=== PATIENT | male | born 1955 | race Caucasian/White ===

== ENCOUNTER 2017-08-15 14:31 | Inpatient (IN) | payer MEDICARE, OTHER ==
[2017-08-15] MEDS ORDERED: NITROGLYCERIN SL TABS 0.4 MG TAB SUBLINGUAL PRN (15:01)
[2017-08-15] MEDS ORDERED: MORPHINE SULFATE 4 MG/ML SYRINGE IV PRN (15:01)
[2017-08-15] MEDS ORDERED: HEPARIN SODIUM,PORCINE 5,000 UNIT/ML 1 ML VIAL IV PRN (15:01)
[2017-08-15] MEDS ORDERED: PREGABALIN 100 MG CAP PO STA (15:06)
--- NOTE | 2017-08-15 15:09 | ED ---
General Adult HPI - General Chief complaint: Chest Pain Stated complaint: Chest pain Time Seen by Provider: 08/15/17 14:44 Source: EMS, RN notes reviewed, old records reviewed Mode of arrival: EMS Limitations: no limitations - History of Present Illness Initial comments: This is a 62-year-old male to the ER for evaluation. She presents today for evaluation regards to chest pain. Patient presented to [place] her discomfort for chest pain earlier today. Patient was transferred to Hospital for further evaluation and management. Patient has history of severe CAD. No shortness of breath no cough or congestion or recent travel history or sick contacts. Patient denies any trauma. - Related Data Allergies Allergy/AdvReac Type Severity Reaction Status Date / Time No Known Allergies Allergy Unverified 08/15/17 15:07 Review of Systems ROS Statement: Those systems with pertinent positive or pertinent negative responses have been documented in the HPI. ROS Other: All systems not noted in ROS Statement are negative. Past Medical History Past Medical History: Coronary Artery Disease (CAD), Chest Pain / Angina, COPD Additional Past Medical History / Comment(s): Neuropathy History of Any Multi-Drug Resistant Organisms: None Reported Additional Past Surgical History / Comment(s): Right below the knee amputation, left above the knee amputation Past Psychological History: No Psychological Hx Reported Smoking Status: Current every day smoker Past Alcohol Use History: None Reported Past Drug Use History: Marijuana General Exam Limitations: no limitations General appearance: alert, anxious Head exam: Present: atraumatic, normocephalic, normal inspection Eye exam: Present: normal appearance, PERRL, EOMI. Absent: scleral icterus, conjunctival injection, periorbital swelling ENT exam: Present: normal exam, mucous membranes moist Neck exam: Present: normal inspection. Absent: tenderness, meningismus, lymphadenopathy Respiratory exam: Present: normal lung sounds bilaterally. Absent: respiratory distress, wheezes, rales, rhonchi, stridor Cardiovascular Exam: Present: regular rate, normal rhythm, normal heart sounds. Absent: systolic murmur, diastolic murmur, rubs, gallop, clicks GI/Abdominal exam: Present: soft, normal bowel sounds. Absent: distended, tenderness, guarding, rebound, rigid Extremities exam: Present: normal inspection, full ROM, normal capillary refill. Absent: tenderness, pedal edema, joint swelling, calf tenderness Back exam: Present: normal inspection Neurological exam: Present: alert, oriented X3, CN II-XII intact Psychiatric exam: Present: normal affect, normal mood Skin exam: Present: warm, dry, intact, normal color. Absent: rash Course Vital Signs 08/15/17 14:35 Temperature 97.0 F L Pulse Rate 77 Respiratory 16 Rate Blood Pressure 98/60 O2 Sat by Pulse 95 Oximetry - Reevaluation(s) Reevaluation #1: 08/15/17 15:08 Outpatient lab tests and studies are reviewed, patient's complaining of chest pain and nerve pain Medical Decision Making - Medical Decision Making 62 male the ER for vaginal chest pain. Elevated troponin, no EKG changes. Patient will be admitted for anticoagulation, cardiology observation Critical Care Time Critical Care Time: Yes Total Critical Care Time: 31 Disposition Clinical Impression: Chest pain, NSTEMI (non-ST elevated myocardial infarction) Disposition: ADMITTED IP TO THIS HOSP Condition: Serious Referrals: Salome Reynoso MD [Primary Care Provider] - 1-2 days
[2017-08-15] MEDS ORDERED: IPRATROPIUM-ALBUTEROL 3 ML NEB INHALATION STA (15:10)
[2017-08-15] MEDS: HEPARIN SOD,PORK IN 0.45% NACL 25,000 UNIT in 0.45% NACL 1 500ML.BAG IV SCH (15:34)
[2017-08-15 16:24] LABS: Basophils # (A) 0.1 k/uL (0-0.2); Basophils % (A) 1 %; Eosinophils # (A) 0.2 k/uL (0-0.7); Eosinophils % (A) 2 %; HCT 54.1 % (39.0-53.0); HGB 18.2 gm/dL (13.0-17.5); Lymphocytes # (A) 3.1 k/uL (1.0-4.8); Lymphocytes % (A) 39 %; MCH 28.5 pg (25.0-35.0); MCHC 33.6 g/dL (31.0-37.0); MCV 84.8 fL (80.0-100.0); Monocytes # (A) 0.5 k/uL (0-1.0); Monocytes % (A) 6 %; Neutrophils % (A) 50 %; Platelet Count 191 k/uL (150-450); RBC 6.39 m/uL (4.30-5.90)
[2017-08-15 16:32] LABS: ALT 30 U/L (21-72); AST 21 U/L (17-59); Albumin 3.6 g/dL (3.5-5.0); Alkaline Phosphatase 112 U/L (38-126); Anion Gap 9 mmol/L; Blood Urea Nitrogen 14 mg/dL (9-20); Calcium 8.8 mg/dL (8.4-10.2); Carbon Dioxide 24 mmol/L (22-30); Chloride 105 mmol/L (98-107); Glucose 98 mg/dL (74-99); Potassium 4.2 mmol/L (3.5-5.1); Sodium 138 mmol/L (137-145); Total Bilirubin 0.8 mg/dL (0.2-1.3)
[2017-08-15 16:40] LABS: INR 1.1 (<1.2); Partial Thromboplastin Time 36.8 sec (22.0-30.0); Prothrombin Time 10.7 sec (9.0-12.0)
[2017-08-15 16:57] LABS: Creatine Kinase MB 2.3 ng/mL (0.0-2.4)
[2017-08-15 17:13] LABS: Troponin I 0.654 ng/mL (0.000-0.034)
[2017-08-15] MEDS ORDERED: NALOXONE 0.4 MG/ML 1 ML VIAL IV PRN (17:40)
[2017-08-15] MEDS ORDERED: CALCIUM CARBONATE 500 MG CHEWABLE PO PRN (17:40)
[2017-08-15] MEDS ORDERED: MAGNESIUM HYDROXIDE 2,400 MG/10 ML CUP PO PRN (17:40)
[2017-08-15] MEDS ORDERED: LACTULOSE 20 GM/30 ML CUP PO PRN (17:40)
[2017-08-15] MEDS ORDERED: ONDANSETRON 4 MG/2 ML VIAL IVP PRN (17:40)
[2017-08-15 18:17] VITALS: RESP 18
[2017-08-15] MEDS: Acetaminophen-Codeine 300-30mg TAB PO PRN (19:54)
[2017-08-15] MEDS: PREGABALIN 100 MG CAP PO SCH (19:54)
[2017-08-15] MEDS: METOPROLOL TARTRATE 25 MG TAB PO SCH (19:55)
[2017-08-15] MEDS: LORazepam 0.5 MG TAB PO PRN (19:55)
[2017-08-15] MEDS: AMITRIPTYLINE HCL 25 MG TAB PO SCH (19:55)
[2017-08-15] MEDS: IPRATROPIUM-ALBUTEROL 3 ML NEB INHALATION SCH (20:19)
[2017-08-15] MEDS ORDERED: MELATONIN 3 MG TABLET PO PRN (21:00)
[2017-08-15] MEDS: BUDESONIDE 1 MG/2 ML NEBU INHALATION SCH (22:18)
--- NOTE | 2017-08-15 22:39 | HP ---
HISTORY AND PHYSICAL DATE OF ADMISSION: 08/15/2017 PRESENTING COMPLAINT: Chest pain. HISTORY OF PRESENTING COMPLAINT: This is a 62-year-old patient followed by Dr. Salome Reynoso. Patient for about 3 weeks has been having chest pain on and off. Patient is a bilateral below-knee amputee. The patient states he gets this pressure across the chest which lasts anywhere from a few minutes to less than an hour. It does not necessarily radiate. Sometimes he is short of breath, nauseated. Doubtful dizziness. He had a more protracted severe episode and decided to go to [facility]; there his troponin was 0.19 and he was transferred here to [facility]. Second troponin here went up to 0.654. Patient is being admitted with a possible acute non-Q-wave myocardial infarction, and this could have occurred maybe starting in the last 48 hours. Patient is also short of breath and does wheeze. He smokes. REVIEW OF SYSTEMS: CONSTITUTIONAL: Tired. HEENT: None. RESPIRATORY: Wheezing, short of breath, cough. CARDIOVASCULAR: As above. GASTROINTESTINAL: None. GENITOURINARY: None. MUSCULOSKELETAL: Some pain in the stump. DERMATOLOGICAL: None. HEMATOLOGICAL: None. LYMPHATICS: None. PSYCHIATRY: Anxious. NEUROLOGICAL: None. PAST MEDICAL HISTORY: Neuropathy. PAST SURGICAL HISTORY: 1. Right below-knee amputation. 2. Left above-knee amputation. SOCIAL HISTORY: Lives by himself. Has smoked for several years. Denies alcohol. Some marijuana. FAMILY HISTORY: Reviewed; noncontributory to presentation. HOME MEDICATIONS: 1. Lyrica 200 mg 3 times a day. 2. Prilosec 20 mg with breakfast. 3. Flonase 1 spray each nostril daily. 4. Elavil 25 mg p.o. b.i.d. ALLERGIES: NONE. PHYSICAL EXAMINATION: VITAL SIGNS ON PRESENTATION: Temperature 97, pulse 77, respiration 16, blood pressure 98/60, pulse ox 95% on 2 L. Last blood pressure was 120/71. GENERAL APPEARANCE: Well built; BMI 50. Sitting up, somewhat disheveled. EYES: Pupils equal. Conjunctivae normal. HEENT: External appearance of nose and ears normal. Oral cavity normal. NECK: JVD not raised. Mass not palpable. RESPIRATORY: Effort increased. LUNGS: Diminished breath sounds. Prolonged expiration and wheezing. CARDIOVASCULAR: First and second sounds normal. No edema. ABDOMEN: Soft, nontender. Liver and spleen not palpable. LYMPHATIC: No lymph node palpable in neck or axillae. PSYCHIATRY: Alert and oriented x3. Mood and affect anxious-appearing. INVESTIGATIONS: White count 8, hemoglobin 18.2, potassium 4.2. BUN and creatinine are normal. Troponin 0.654. Patient's troponin at [facility] was 0.19. EKG shows poor R-wave progression in the anterior leads and some flipping of the T- waves in the lateral leads. ASSESSMENT: 1. Possible acute non-Q-wave myocardial infarction. 2. Chronic obstructive pulmonary disease in a current smoker. 3. Chronic nicotine dependence. Patient is a cigarette smoker. 4. Peripheral arterial disease with right below-knee and left above-knee amputation. 5. Morbid obesity with body mass index of 50.2. 6. Peripheral arterial disease. 7. IV heparin monitoring. PLAN: Patient is currently on aspirin, beta delmar, Lipitor, IV heparin. Patient is also put on DuoNeb. We will also add inhaled steroids. Cardiology was consulted. Admitted to the telemetry floor. Care was discussed with the patient. Cardiology was consulted. MMODL / IJN: [id number] /
[2017-08-15] MEDS ORDERED: HEPARIN SODIUM 1,000 UN/ML (10ML VL) MISCELLANE ONE (23:05)
[2017-08-15] MEDS: NICOTINE 21MG/24HR PATCH TRANSDERM SCH (23:06)
[2017-08-15 23:10] LABS: Creatine Kinase MB 2.1 ng/mL (0.0-2.4)
[2017-08-15 23:12] LABS: Troponin I 0.571 ng/mL (0.000-0.034)
[2017-08-16] MEDS: IPRATROPIUM-ALBUTEROL 3 ML NEB INHALATION SCH ×6 (00:48→21:01)
[2017-08-16 05:42] LABS: Mean Platelet Volume 7.2; Platelet Count 172 k/uL (150-450)
[2017-08-16 05:54] LABS: Cholesterol 224 mg/dL (<200); HDL Cholesterol 26 mg/dL (40-60); LDL Cholesterol,Calculated 146 mg/dL (0-99); Triglycerides 260 mg/dL (<150)
[2017-08-16 06:31] LABS: Creatine Kinase MB 3.5 ng/mL (0.0-2.4)
[2017-08-16 06:37] LABS: Troponin I 0.575 ng/mL (0.000-0.034)
[2017-08-16] MEDS: BUDESONIDE 1 MG/2 ML NEBU INHALATION SCH ×2 (07:30→21:00)
--- NOTE | 2017-08-16 07:41 | XR ---
EXAMINATION TYPE: XR chest 2V DATE OF EXAM: 08/16/2017 COMPARISON: NONE HISTORY: Shortness of breath TECHNIQUE: Frontal and lateral views of the chest are obtained. FINDINGS: Scattered senescent parenchymal changes noted. Hyperinflation compatible with COPD. No evidence for infiltrate. Suspect linear atelectasis left lateral lung base. Heart size is stable. Mediastinal structures are stable and grossly unremarkable. No evidence for hilar prominence. Degenerative changes dorsal spine. IMPRESSION: 1. COPD. 2. Linear atelectasis left lateral lung base.
--- NOTE | 2017-08-16 08:08 | P.CRDCN ---
History of Present Illness Consult date: 08/16/17 Requesting physician: Grover Mora Consult reason: non-Q-wave CO Chief complaint: nonQ wave CO History of present illness: This is a 62-year-old gentleman with history of nicotine dependence, patient is also had stenting of his lower extremities, he denies hypertension, no diabetes, no hyperlipidemia, he does have a right below the knee amputation and a left [id number] amputation. He presented initially to [facility] and was transferred here. Patient states he's been having discomfort in his chest for the past one to 2 weeks, he did call his doctor last Saturday and was instructed to take the ambulance to the emergency room but because of finances he did not do this. He continued to have chest discomfort with associated shortness of breath on a daily basis with or without exertion. Ultimately he presented to [facility], patient was found to have a mildly abnormal troponin there and was transferred here for further evaluation. EKG performed [facility] showed a normal sinus rhythm with ST-T wave changes noted in the anterior lateral leads. His subsequent EKG performed here showed worsening changes in those leads. Blood pressure 136/68, heart rate in the 70s, temperature 97.5, he is 95% on 3 L of oxygen. White blood cell count 8.0, hemoglobin 18.2, platelet count 172. Sodium 138, potassium 4.2 , BUN 14, creatinine 0.8. Troponins 0.6, 0.5, 0.5. Cholesterol 224, LDL 146, HDL 26, triglycerides are 260. At the time of my examination this morning, he is currently chest pain-free. Past Medical History Past Medical History: Coronary Artery Disease (CAD), Chest Pain / Angina, COPD Additional Past Medical History / Comment(s): Neuropathy History of Any Multi-Drug Resistant Organisms: None Reported Additional Past Surgical History / Comment(s): Right below the knee amputation, left above the knee amputation Past Psychological History: No Psychological Hx Reported Smoking Status: Current every day smoker Past Alcohol Use History: None Reported Past Drug Use History: Marijuana Medications and Allergies Home Medications Medication Instructions Recorded Confirmed Type Amitriptyline HCl [Elavil] 25 mg PO BID 08/15/17 08/15/17 History Fluticasone Nasal [place] [Flonase 1 spr EA NOSTRIL DAILY 08/15/17 08/15/17 History Nasal [place]] Omeprazole [PriLOSEC] 20 mg PO AC-BRKFST 08/15/17 08/15/17 History Pregabalin [Lyrica] 200 mg PO TID 08/15/17 08/15/17 History Allergies Allergy/AdvReac Type Severity Reaction Status Date / Time No Known Allergies Allergy Verified 08/15/17 15:09 Physical Exam Vitals: Vital Signs Temp Pulse Pulse Resp BP BP Pulse Ox 08/16/17 07:45 74 08/16/17 07:33 70 90 L 08/16/17 03:03 97.5 F L 68 18 137/69 95 08/16/17 00:00 98.1 F 67 16 108/78 95 08/15/17 20:28 78 08/15/17 20:20 78 08/15/17 20:00 98 F 94 18 127/65 94 L 08/15/17 18:35 82 18 93 L 08/15/17 16:24 72 08/15/17 16:18 70 08/15/17 16:13 98.1 F 84 18 120/71 86 L 08/15/17 15:39 77 16 113/75 94 L 08/15/17 14:35 97.0 F L 77 16 98/60 95 Intake and Output 08/15/17 08/16/17 08/16/17 22:59 06:59 14:59 Intake Total 553.865 Balance 553.865 Intake: Intake, IV Titration 313.865 Amount Heparin Sod,Pork in 0.45% 313.865 NaCl 25,000 unit In 0.45 % NaCl 1 500ml.bag @ 12 UNITS/KG/HR 19.59 mls/hr IV .Q24H [facility] Rx#: [id number] Oral 240 Other: Voiding Method Urinal Urinal Weight 81.647 kg 46 kg PHYSICAL EXAMINATION: HEENT: Head is atraumatic, normocephalic. Pupils equal, round. Neck is supple. There is no elevated jugular venous pressure. HEART EXAMINATION: Heart S1, S2 normal. No murmur or gallop heard. CHEST EXAMINATION: On's reveal decreased air exchange with some fine expiratory wheezes throughout. ABDOMEN: Soft, obese, nontender. Bowel sounds are heard. No organomegaly noted. EXTREMITIES: Right [id number] amputation, left [id number] amputation NEUROLOGIC patient is awake, alert and oriented -3. . Results 08/16/17 05:26 08/15/17 16:14 Cardiac Enzymes 08/15/17 08/15/17 08/15/17 Range/Units 16:14 16:14 22:07 AST 21 (17-59) U/L CK-MB (CK-2) 2.3 2.1 (0.0-2.4) ng/mL Troponin I 0.654 H* 0.571 H* (0.000-0.034) ng/mL 08/16/17 Range/Units 05:26 AST (17-59) U/L CK-MB (CK-2) 3.5 H* (0.0-2.4) ng/mL Troponin I 0.575 H* (0.000-0.034) ng/mL Coagulation 08/15/17 08/15/17 08/16/17 Range/Units 16:14 22:07 05:26 PT 10.7 (9.0-12.0) sec APTT 36.8 H 32.8 H 29.6 (22.0-30.0) sec Lipids 08/16/17 Range/Units 05:26 Triglycerides 260 H (<150) mg/dL Cholesterol 224 H (<200) mg/dL HDL Cholesterol 26 L (40-60) mg/dL CBC 08/15/17 08/16/17 Range/Units 16:14 05:26 WBC 8.0 (3.8-10.6) k/uL RBC 6.39 H (4.30-5.90) m/uL Hgb 18.2 H (13.0-17.5) gm/dL Hct 54.1 H (39.0-53.0) % Plt Count 191 172 (150-450) k/uL Comprehensive Metabolic Panel 08/15/17 Range/Units 16:14 Sodium 138 (137-145) mmol/L Potassium 4.2 (3.5-5.1) mmol/L Chloride 105 (98-107) mmol/L Carbon Dioxide 24 (22-30) mmol/L BUN 14 (9-20) mg/dL Creatinine 0.82 (0.66-1.25) mg/dL Glucose 98 (74-99) mg/dL Calcium 8.8 (8.4-10.2) mg/dL AST 21 (17-59) U/L ALT 30 (21-72) U/L Alkaline Phosphatase 112 (38-126) U/L Total Protein 7.0 (6.3-8.2) g/dL Albumin 3.6 (3.5-5.0) g/dL Current Medications Generic Name Dose Route Start Last Admin Trade Name Freq PRN Reason Stop Dose Admin Acetaminophen/Codeine Phosphate 1 each 08/15/17 17:40 08/15/17 19:54 Tylenol #3 PO 1 each Q4HR PRN Administration Moderate Pain Albuterol/Ipratropium 3 ml 08/15/17 20:00 08/16/17 07:30 Duoneb 0.5 Mg-3 Mg/3 Ml Soln INHALATION 3 ml RT-Q4H [facility]TE Administration Amitriptyline HCl 25 mg 08/15/17 21:00 08/15/17 19:55 Elavil PO 25 mg BID YVETTE Administration Aspirin 325 mg 08/16/17 09:00 Aspirin PO DAILY YVETTE Atorvastatin Calcium 80 mg 08/16/17 09:00 Lipitor PO DAILY Y[facility]TE Budesonide 1 mg 08/15/17 21:45 08/16/17 07:30 Pulmicort INHALATION 1 mg RT-BID YVETTE Administration Calcium Carbonate/Glycine 1,000 mg 08/15/17 17:40 Tums PO Q4HR PRN Dyspepsia Heparin Sodium (Porcine) 0 unit 08/15/17 15:01 08/15/17 23:35 Heparin IV 4,000 unit Q6HR PRN Administration Low PTT Protocol Heparin Sodium/Sodium Chloride 500 mls @ 19.59 mls/hr 08/15/17 15:15 05:58 25,000 unit/ Sodium Chloride IV 18 units/kg/hr .Q24H [facility] 29.39 mls/hr Protocol Titration 12 UNITS/KG/HR Lactulose 20 gm 08/15/17 17:40 Cephulac PO DAILY PRN Constipation Lorazepam 0.5 mg 08/15/17 17:40 08/15/17 19:55 Ativan PO 0.5 mg Q6HR PRN Administration Anxiety Magnesium Hydroxide 2,400 mg 08/15/17 17:40 Milk Of Magnesia PO DAILY PRN Constipation Melatonin 3 mg 08/15/17 21:00 08/15/17 19:59 Melatonin PO 3 mg HS PRN Administration Insomnia Metoprolol Tartrate 25 mg 08/15/17 21:00 08/15/17 19:55 Lopressor PO 25 mg BID Y[facility]TE Administration Morphine Sulfate 4 mg 08/15/17 15:01 08/15/17 15:20 Morphine Sulfate (Inj) IV 4 mg Q5M PRN Administration Chest Pain Naloxone HCl 0.2 mg 08/15/17 17:40 Narcan IV Q2M PRN Opioid Reversal Nicotine 1 patch 08/15/17 22:00 08/15/17 23:06 Habitrol 21mg/24hr Patch TRANSDERM Not Given DAILY [facility] Nitroglycerin 0.4 mg 08/15/17 15:01 Nitrostat SUBLINGUAL Q5M PRN Chest Pain Ondansetron HCl 4 mg 08/15/17 17:40 Zofran IVP Q8HR PRN Nausea And Vomiting Pantoprazole Sodium 40 mg 08/16/17 07:30 Protonix PO AC-BRKFST YEVTTE Pregabalin 200 mg 08/15/17 22:00 08/15/17 19:54 Lyrica PO 200 mg TID YVETTE Administration Intake and Output 08/15/17 08/16/17 08/16/17 22:59 06:59 14:59 Intake Total 553.865 Balance 553.865 Intake: Intake, IV Titration 313.865 Amount Heparin Sod,Pork in 0.45% 313.865 NaCl 25,000 unit In 0.45 % NaCl 1 500ml.bag @ 12 UNITS/KG/HR 19.59 mls/hr IV .Q24H [facility] Rx#: [id number] Oral 240 Other: Voiding Method Urinal Urinal Weight 81.647 kg 46 kg 08/16/17 05:26 08/15/17 16:14 EKG Interpretations (text) EKG shows normal sinus rhythm with ST T wave changes in the anterior lateral leads. Assessment and Plan Plan: Assessment and plan #1 non-Q-wave myocardial infarction #2 nicotine dependence, patient's smokes 2 packs of cigarettes per day #3 peripheral vascular disease with prior peripheral stenting, patient has a right below the knee amputation on the left above the knee amputation #4 hyperlipidemia, untreated Plan We will obtain a stat echocardiogram with Doppler study. Patient has been initiated on Lipitor 80, he is also on aspirin, IV heparin, patient also has been advised that he'll need to undergo cardiac catheterization, the risks and benefits were explained to the patient in detail and he is willing to proceed. Further recommendations will be based on these findings and the patient's clinical course. DNP note has been reviewed, I agree with a documented findings and plan of care. Patient was seen and examined.
[2017-08-16] MEDS: PANTOPRAZOLE 40 MG TABLET PO SCH (08:16)
[2017-08-16] MEDS: LORazepam 0.5 MG TAB PO PRN (08:16)
[2017-08-16] MEDS: ATORVASTATIN 80 MG TAB PO SCH (08:16)
[2017-08-16] MEDS: PREGABALIN 100 MG CAP PO SCH ×3 (08:16→21:11)
[2017-08-16] MEDS: METOPROLOL TARTRATE 25 MG TAB PO SCH ×3 (08:16→23:02)
[2017-08-16] MEDS: NICOTINE 21MG/24HR PATCH TRANSDERM SCH (08:17)
[2017-08-16] MEDS: AMITRIPTYLINE HCL 25 MG TAB PO SCH ×2 (08:17→21:11)
[2017-08-16] MEDS ORDERED: ALPRAZolam 0.5 MG TAB PO PRN (09:06)
[2017-08-16] MEDS ORDERED: ATORVASTATIN 80 MG TAB PO STA (09:06)
[2017-08-16] MEDS ORDERED: ASPIRIN 325 MG TAB PO STA (09:06)
[2017-08-16] MEDS ORDERED: ALPRAZolam 0.25 MG TAB PO PRN (09:06)
[2017-08-16] MEDS ORDERED: SODIUM CHLORIDE 0.9% 1,000 ML in EMPTY BAG 1 BAG IV ONE (09:06)
[2017-08-16] MEDS ORDERED: NITROGLYCERIN SL TABS 0.4 MG TAB SUBLINGUAL PRN ×2 (09:06→11:14)
[2017-08-16] MEDS: ASPIRIN 325 MG TAB PO SCH (09:18)
[2017-08-16] MEDS ORDERED: VERAPAMIL 2.5 MG/ML 2 ML AMP ONE ×2 (10:19→10:43)
[2017-08-16] MEDS ORDERED: MIDAZOLAM 2 MG/2 ML VIAL IV ONE (10:22)
[2017-08-16] MEDS ORDERED: MIDAZOLAM 2 MG/2 ML VIAL ONE (10:22)
[2017-08-16] MEDS ORDERED: HEPARIN SODIUM 1,000 UN/ML (10ML VL) ONE (10:22)
[2017-08-16] MEDS ORDERED: IV FLUID CONTINUATION 900 ML IV ONE (10:25)
[2017-08-16] MEDS ORDERED: LIDOCAINE 2% INJ 20 MG/ML SQ ONE (10:25)
[2017-08-16] MEDS ORDERED: VERAPAMIL SYRINGE (5 MG/10 ML) INTRAARTER ONE ×2 (10:27→11:10)
[2017-08-16] MEDS: HEPARIN SODIUM 1,000 UN/ML (10ML VL) IV ONE ×2 (10:28→10:46)
[2017-08-16] MEDS ORDERED: fentaNYL (PF) 50 MCG/ML 2 ML AMP ONE (10:43)
[2017-08-16] MEDS: fentaNYL (PF) 50 MCG/ML 2 ML AMP IV ONE ×2 (10:45→10:52)
[2017-08-16] MEDS ORDERED: HEPARIN SODIUM 1,000 UN/ML (10ML VL) IV ONE (10:47)
[2017-08-16] MEDS ORDERED: niCARdipine 25 MG/10 ML VIAL ONE (10:56)
[2017-08-16] MEDS ORDERED: NITROGLYCERIN 1000MCG/10ML SYRINGE INTRACORON ONE (10:59)
[2017-08-16] MEDS ORDERED: CLOPIDOGREL 75 MG TAB ONE (11:09)
[2017-08-16] MEDS ORDERED: MAG HYDROX/AL HYDROX/SIMETH 30 ML CUP PO PRN (11:14)
[2017-08-16] MEDS ORDERED: RX INFO: IV CONTRAST WAS GIVEN 1 EACH MISC MISCELLANE PRN (11:14)
[2017-08-16] MEDS ORDERED: ATROPINE SULFATE 0.1 MG/ML 10ML SYRINGE IV PRN (11:14)
[2017-08-16] MEDS ORDERED: ZOLPIDEM 5 MG TAB PO PRN (11:14)
[2017-08-16] MEDS ORDERED: SODIUM CHLORIDE 0.9% 1,000 ML IV SCH (11:15)
[2017-08-16] MEDS ORDERED: IOHEXOL 350 MG/ML 125ML BOTTLE INJ ONE (11:15)
[2017-08-16] MEDS ORDERED: CLOPIDOGREL 75 MG TAB PO ONE (11:16)
--- NOTE | 2017-08-16 11:17 | P.CRDCN ---
History of Present Illness History of present illness: Patient interviewed and examined this morning. Pain-free. For the last several days he's been experiencing chest discomfort all across the front with bilateral arm discomfort and was asked to comment by his primary care physician almost a week back. Yesterday he was transferred from [facility] for chest pain abnormal cardiac enzymes and an abnormal ECG ECGs from [facility] were reviewed and show anterior ST-T abnormalities consistent with anterior wall injury Patient noncompliant with medications Bilateral amputee Peripheral vascular disease Suggest Antiplatelet therapy, statins, beta blockers and proceed with coronary angiography today 2. Echo and Doppler study Past Medical History Past Medical History: Coronary Artery Disease (CAD), Chest Pain / Angina, COPD Additional Past Medical History / Comment(s): Neuropathy History of Any Multi-Drug Resistant Organisms: None Reported Additional Past Surgical History / Comment(s): Right below the knee amputation, left above the knee amputation Past Psychological History: No Psychological Hx Reported Smoking Status: Current every day smoker Past Alcohol Use History: None Reported Past Drug Use History: Marijuana Medications and Allergies Home Medications Medication Instructions Recorded Confirmed Type Amitriptyline HCl [Elavil] 25 mg PO BID 08/15/17 08/15/17 History Fluticasone Nasal [place] [Flonase 1 spr EA NOSTRIL DAILY 08/15/17 08/15/17 History Nasal [place]] Omeprazole [PriLOSEC] 20 mg PO AC-BRKFST 08/15/17 08/15/17 History Pregabalin [Lyrica] 200 mg PO TID 08/15/17 08/15/17 History Allergies Allergy/AdvReac Type Severity Reaction Status Date / Time No Known Allergies Allergy Verified 08/15/17 15:09 Physical Exam Vitals: Vital Signs Temp Pulse Pulse Resp BP BP Pulse Ox 08/16/17 09:07 97.5 F L 76 18 91/58 92 L 08/16/17 08:42 97.6 F 76 18 91/58 86 L 08/16/17 08:05 18 92 L 08/16/17 08:00 76 18 08/16/17 07:45 74 08/16/17 07:33 70 90 L 08/16/17 03:03 97.5 F L 68 18 137/69 95 08/16/17 00:00 98.1 F 67 16 108/78 95 03/15/18 20:28 78 08/15/17 20:20 78 08/15/17 20:00 98 F 94 18 127/65 94 L 08/15/17 18:35 82 18 93 L 08/15/17 16:24 72 08/15/17 16:18 70 08/15/17 16:13 98.1 F 84 18 120/71 86 L 08/15/17 15:39 77 16 113/75 94 L 08/15/17 14:35 97.0 F L 77 16 98/60 95 Intake and Output 08/15/17 08/16/17 08/16/17 22:59 06:59 14:59 Intake Total 553.865 300 Balance 553.865 300 Intake: IV 300 Intake, IV Titration 313.865 Amount Heparin Sod,Pork in 0.45% 313.865 NaCl 25,000 unit In 0.45 % NaCl 1 500ml.bag @ 12 UNITS/KG/HR 19.59 mls/hr IV .Q24H [facility] Rx#: [id number] Oral 240 Other: Voiding Method Urinal Urinal Weight 81.647 kg 46 kg Results 08/16/17 05:26 08/15/17 16:14 Cardiac Enzymes 08/15/17 08/15/17 08/15/17 Range/Units 16:14 16:14 22:07 AST 21 (17-59) U/L CK-MB (CK-2) 2.3 2.1 (0.0-2.4) ng/mL Troponin I 0.654 H* 0.571 H* (0.000-0.034) ng/mL 08/16/17 Range/Units 05:26 AST (17-59) U/L CK-MB (CK-2) 3.5 H* (0.0-2.4) ng/mL Troponin I 0.575 H* (0.000-0.034) ng/mL Coagulation 08/15/17 08/15/17 08/16/17 Range/Units 16:14 22:07 05:26 PT 10.7 (9.0-12.0) sec APTT 36.8 H 32.8 H 29.6 (22.0-30.0) sec Lipids 08/16/17 Range/Units 05:26 Triglycerides 260 H (<150) mg/dL Cholesterol 224 H (<200) mg/dL HDL Cholesterol 26 L (40-60) mg/dL CBC 08/15/17 08/16/17 Range/Units 16:14 05:26 WBC 8.0 (3.8-10.6) k/uL RBC 6.39 H (4.30-5.90) m/uL Hgb 18.2 H (13.0-17.5) gm/dL Hct 54.1 H (39.0-53.0) % Plt Count 191 172 (150-450) k/uL Comprehensive Metabolic Panel 08/15/17 Range/Units 16:14 Sodium 138 (137-145) mmol/L Potassium 4.2 (3.5-5.1) mmol/L Chloride 105 (98-107) mmol/L Carbon Dioxide 24 (22-30) mmol/L BUN 14 (9-20) mg/dL Creatinine 0.82 (0.66-1.25) mg/dL Glucose 98 (74-99) mg/dL Calcium 8.8 (8.4-10.2) mg/dL AST 21 (17-59) U/L ALT 30 (21-72) U/L Alkaline Phosphatase 112 (38-126) U/L Total Protein 7.0 (6.3-8.2) g/dL Albumin 3.6 (3.5-5.0) g/dL Current Medications Generic Name Dose Route Start Last Admin Trade Name Freq PRN Reason Stop Dose Admin Acetaminophen/Codeine Phosphate 1 each 08/15/17 17:40 08/15/17 19:54 Tylenol #3 PO 1 each Q4HR PRN Administration Moderate Pain Albuterol/Ipratropium 3 ml 08/15/17 20:00 08/16/17 07:30 Duoneb 0.5 Mg-3 Mg/3 Ml Soln INHALATION 3 ml RT-Q4H Y[facility]TE Administration Alprazolam 0.25 mg 08/16/17 09:06 Xanax PO Q6HR PRN Mild Anxiety Alprazolam 0.5 mg 08/16/17 09:06 Xanax PO Q6HR PRN Moderate Anxiety Amitriptyline HCl 25 mg 08/15/17 21:00 08/16/17 08:17 Elavil PO 25 mg BID YVETTE Administration Aspirin 325 mg 08/16/17 09:00 08/16/17 09:18 Aspirin PO 325 mg DAILY [facility] Administration Atorvastatin Calcium 80 mg 08/16/17 09:00 08/16/17 08:16 Lipitor PO 80 mg DAILY [facility] Administration Budesonide 1 mg 08/15/17 21:45 08/16/17 07:30 Pulmicort INHALATION 1 mg RT-BID Y[facility]ETTE Administration Calcium Carbonate/Glycine 1,000 mg 08/15/17 17:40 Tums PO Q4HR PRN Dyspepsia Heparin Sodium (Porcine) 0 unit 08/15/17 15:01 08/15/17 23:35 Heparin IV 4,000 unit Q6HR PRN Administration Low PTT Protocol Heparin Sodium/Sodium Chloride 500 mls @ 19.59 mls/hr 08/15/17 15:15 05:58 25,000 unit/ Sodium Chloride IV 18 units/kg/hr .Q24H [facility] 29.39 mls/hr Protocol Titration 12 UNITS/KG/HR Lactulose 20 gm 08/15/17 17:40 Cephulac PO DAILY PRN Constipation Lorazepam 0.5 mg 08/15/17 17:40 08/15/17 19:55 Ativan PO 0.5 mg Q6HR PRN Administration Anxiety Magnesium Hydroxide 2,400 mg 08/15/17 17:40 Milk Of Magnesia PO DAILY PRN Constipation Melatonin 3 mg 08/15/17 21:00 08/15/17 19:59 Melatonin PO 3 mg HS PRN Administration Insomnia Metoprolol Tartrate 25 mg 08/15/17 21:00 08/16/17 08:41 Lopressor PO Not Given BID [facility] Morphine Sulfate 4 mg 08/15/17 15:01 08/15/17 15:20 Morphine Sulfate (Inj) IV 4 mg Q5M PRN Administration Chest Pain Naloxone HCl 0.2 mg 08/15/17 17:40 Narcan IV Q2M PRN Opioid Reversal Nicotine 1 patch 08/15/17 22:00 08/16/17 08:17 Habitrol 21mg/24hr Patch TRANSDERM 1 patch DAILY [facility] Administration Nitroglycerin 0.4 mg 08/15/17 15:01 Nitrostat SUBLINGUAL Q5M PRN Chest Pain Nitroglycerin 0.4 mg 08/16/17 09:06 Nitrostat SUBLINGUAL Q5M PRN Chest Pain Ondansetron HCl 4 mg 08/15/17 17:40 Zofran IVP Q8HR PRN Nausea And Vomiting Pantoprazole Sodium 40 mg 08/16/17 07:30 08/16/17 08:16 Protonix PO 40 mg AC-BRKFST [facility]TE Administration Pregabalin 200 mg 08/15/17 22:00 08/16/17 08:16 Lyrica PO 200 mg TID [facility]TE Administration Intake and Output 08/15/17 08/16/17 08/16/17 22:59 06:59 14:59 Intake Total 553.865 300 Balance 553.865 300 Intake: IV 300 Intake, IV Titration 313.865 Amount Heparin Sod,Pork in 0.45% 313.865 NaCl 25,000 unit In 0.45 % NaCl 1 500ml.bag @ 12 UNITS/KG/HR 19.59 mls/hr IV .Q24H [facility] Rx#: [id number] Oral 240 Other: Voiding Method Urinal Urinal Weight 81.647 kg 46 kg 08/16/17 05:26 08/15/17 16:14
[2017-08-16] MEDS ORDERED: MORPHINE ORAL SOLN 10 MG/5 ML CUP PO PRN (14:01)
[2017-08-16 14:15] VITALS: BMI 28.5
[2017-08-16] MEDS: HEPARIN SOD,PORK IN 0.45% NACL 25,000 UNIT in 0.45% NACL 1 500ML.BAG IV SCH (16:55)
--- NOTE | 2017-08-16 18:22 | PN ---
PROGRESS NOTE DATE OF SERVICE: 08/16/2017 PRESENTING COMPLAINT: Chest pain. INTERVAL HISTORY: This is a patient who presented with acute non-Q-wave myocardial infarction, was taken to the cardiac catheterization lab today and had angioplasty and stenting done to the LAD. I do not have the formal results with me. Patient is lying in bed, comfortable. No chest pain. Breathing is a bit better. REVIEW OF SYSTEMS: Done for constitutional, cardiovascular, GI, pulmonary; relevant findings as above. CURRENT MEDICATIONS: Reviewed. They include: 1. Aspirin. 2. Lipitor. 3. Plavix. 4. IV heparin. 5. Lopressor, which was actually held this morning because of low blood pressure. PHYSICAL EXAMINATION: Temperature 96.7, pulse 70, respiration 18, blood pressure 100/62, pulse ox 93% on 3 L. GENERAL APPEARANCE: Lying in bed, more comfortable. EYES: Pupils equal. Conjunctivae normal. HEENT: External appearance of nose and ears normal. Oral cavity normal. NECK: JVD not raised. Mass not palpable. RESPIRATORY: Effort normal. LUNGS: Diminished breath sounds. CARDIOVASCULAR: First and second sounds normal. No edema. ABDOMEN: Soft, nontender. Liver and spleen not palpable. PSYCHIATRY: Alert and oriented x3. Mood and affect normal. EXTREMITIES: Right below-knee amputation and left above-knee amputation. INVESTIGATIONS: Troponin 0.6, 0.5, 0.5. LDL is 146. ASSESSMENT: 1. Acute non-Q-wave myocardial infarction. 2. Cardiac catheterization with angioplasty and stenting possibly to left anterior descending coronary artery; I do not have the formal results. 3. Chronic obstructive pulmonary disease in a current smoker. 4. Chronic nicotine dependence. Patient is a cigarette smoker. 5. Peripheral arterial disease with right below-knee and left above-knee amputation. 6. Morbid obesity with body mass index of 50.2. 7. Peripheral arterial disease. 8. IV heparin monitoring. PLAN: Continue current medication and treatment plan. Care was discussed with the patient. Follow with Cardiology. MMODL / IJN: [id number] /
[2017-08-16] MEDS: Acetaminophen-Codeine 300-30mg TAB PO PRN (21:10)
[2017-08-16] MEDS ORDERED: IPRATROPIUM-ALBUTEROL 3 ML NEB INHALATION PRN (21:39)
[2017-08-17 06:09] LABS: Mean Platelet Volume 7.3; Platelet Count 139 k/uL (150-450)
[2017-08-17] MEDS: Acetaminophen-Codeine 300-30mg TAB PO PRN (06:18)
[2017-08-17] MEDS: PANTOPRAZOLE 40 MG TABLET PO SCH (06:19)
[2017-08-17] MEDS: PREGABALIN 100 MG CAP PO SCH (06:23)
[2017-08-17] MEDS: BUDESONIDE 1 MG/2 ML NEBU INHALATION SCH (08:54)
[2017-08-17] MEDS: IPRATROPIUM-ALBUTEROL 3 ML NEB INHALATION SCH ×2 (08:54→12:19)
[2017-08-17] MEDS ORDERED: ASPIRIN 325 MG TAB PO SCH (09:00)
[2017-08-17] MEDS ORDERED: CLOPIDOGREL 75 MG TAB PO SCH (09:00)
--- NOTE | 2017-08-17 09:49 | ECHOF ---
Referral Reason:assess lvf MEASUREMENTS -------- HEIGHT: 132.1 cm WEIGHT: 45.8 kg BP: 137/69 IVSd: 1.2 cm (0.6 - 1.1) LVIDd: 4.8 cm (3.9 - 5.3) LVPWd: 1.4 cm (0.6 - 1.1) IVSs: 1.4 cm LVIDs: 4.0 cm LVPWs: 1.5 cm Ao Diam: 3.5 cm (2.0 - 3.7) AV Cusp: 2.3 cm (1.5 - 2.6) LA Diam: 3.1 cm (2.7 - 3.8) MV EXCURSION: 11.106 mm (> 18.000) MV EF SLOPE: 53 mm/s (70 - 150) EPSS: 0.9 cm MV E Esau: 0.60 m/s MV DecT: 239 ms MV A Esau: 0.45 m/s MV E/A Ratio: 1.34 RAP: 5.00 mmHg RVSP: 7.35 mmHg FINDINGS -------- Sinus rhythm. This was a technically good study. The left ventricular size is normal. Left ventricular wall thickness is normal. Overall left vent ricular systolic function is moderate-severely impaired with, an EF between 30 - 35 %. Mid anterior LV wall motion is akinetic. Mid lateral LV wall motion is akinetic. Mid anteroseptal LV wall m otion is akinetic. Apical anterior LV wall motion is akinetic. Apical lateral LV wall motion is akinetic. Apical septum LV wall motion is akinetic. The right ventricle is normal in size and function. The left atrium is normal in size. The right atrium is normal in size. The aortic valve is trileaflet, and appears structurally normal. No aortic stenosis or regurgitation. The mitral valve is normal. Mild mitral regurgitation is present. Trace tricuspid regurgitation present. There is no evidence of pulmonary hypertension. The right ventricular systolic pressure, as measured by Doppler, is 7.35mmHg. Pulmonic valve appears structurally normal. There is no pulmonic regurgitation present. The aortic root, ascending aorta and aortic arch are normal. There is no pericardial effusion. CONCLUSIONS -------- 1. Sinus rhythm. 2. This was a technically good study. 3. The left ventricular size is normal. 4. Left ventricular wall thickness is normal. 5. Overall left ventricular systolic function is moderate-severely impaired with, an EF between 30 - 35 %. 6. Mid anterior LV wall motion is akinetic. 7. Mid lateral LV wall motion is akinetic. 8. Mid anteroseptal LV wall motion is akinetic. 9. Apical anterior LV wall motion is akinetic. 10. Apical lateral LV wall motion is akinetic. 11. Apical septum LV wall motion is akinetic. 12. The left atrium is normal in size. 13. The aortic valve is trileaflet, and appears structurally normal. No aortic stenosis or regurgitat ion. 14. Mild mitral regurgitation is present. 15. Trace tricuspid regurgitation present. 16. There is no evidence of pulmonary hypertension. 17. Pulmonic valve appears structurally normal. 18. There is no pulmonic regurgitation present. 19. The aortic root, ascending aorta and aortic arch are normal. 20. There is no pericardial effusion. [employer] PROFESSOR: Fabiana Loaiza RDCS
[2017-08-17] MEDS: ASPIRIN 325 MG TAB PO SCH (10:22)
[2017-08-17] MEDS: NICOTINE 21MG/24HR PATCH TRANSDERM SCH (10:23)
[2017-08-17] MEDS: METOPROLOL TARTRATE 25 MG TAB PO SCH ×2 (10:23→10:24)
[2017-08-17] MEDS: ATORVASTATIN 80 MG TAB PO SCH (10:23)
[2017-08-17] MEDS: AMITRIPTYLINE HCL 25 MG TAB PO SCH (10:23)
--- NOTE | 2017-08-17 11:22 | P.PN ---
Subjective Progress Note Date: 08/17/17 Principal diagnosis: Non-Q-wave [place] This is a 62-year-old gentleman with history of nicotine dependence, patient is also had stenting of his lower extremities, he denies hypertension, no diabetes, no hyperlipidemia, he does have a right below the knee amputation and a left xaysn-cpy-qcvg amputation. He presented initially to [facility] and was transferred here. Patient states he's been having discomfort in his chest for the past one to 2 weeks, he did call his doctor last Saturday and was instructed to take the ambulance to the emergency room but because of finances he did not do this. He continued to have chest discomfort with associated shortness of breath on a daily basis with or without exertion. Ultimately he presented to [facility], patient was found to have a mildly abnormal troponin there and was transferred here for further evaluation. EKG performed [facility] showed a normal sinus rhythm with ST-T wave changes noted in the anterior lateral leads. His subsequent EKG performed here showed worsening changes in those leads. Blood pressure 136/68, heart rate in the 70s, temperature 97.5, he is 95% on 3 L of oxygen. White blood cell count 8.0, hemoglobin 18.2, platelet count 172. Sodium 138, potassium 4.2 , BUN 14, creatinine 0.8. Troponins 0.6, 0.5, 0.5. Cholesterol 224, LDL 146, HDL 26, triglycerides are 260. At the time of my examination this morning, he is currently chest pain-free. 08/17/2017 Patient was taken to the cardiac catheterization lab yesterday where he underwent angioplasty and stenting of the LAD. EKG from this morning shows sinus rhythm with no changes from post-PCI. He is hemodynamically stable. From cardiology's perspective, he may be able to be discharged home today, we will make him a follow-up appointment to see Dr. Carreon in the office post discharge. He has been provided with necessary medications. Objective - Vital Signs Vital signs: Vital Signs Temp 98.7 F 08/17/17 04:00 Pulse 92 08/17/17 09:12 Resp 18 08/17/17 04:00 BP 101/54 08/17/17 04:00 Pulse Ox 93 L 08/17/17 04:00 Intake & Output 08/16/17 08/17/17 08/17/17 18:59 06:59 18:59 Intake Total 1840 Output Total 200 Balance 1840 -200 Weight 46 kg 80 kg Intake: IV 300 Intake, IV Titration 1000 Amount Sodium Chloride 0.9% 1, 1000 000 ml @ 100 mls/hr IV . Q10H COUNTS INCLUDE 234 BEDS AT THE [facility] Rx#:[id number] Oral 540 Output: Urine 200 Other: Voiding Method Urinal # Voids 4 - Exam PHYSICAL EXAMINATION: HEENT: Head is atraumatic, normocephalic. Pupils equal, round. Neck is supple. There is no elevated jugular venous pressure. HEART EXAMINATION: Heart S1, S2 normal. No murmur or gallop heard. CHEST EXAMINATION: On's reveal decreased air exchange with some fine expiratory wheezes throughout. ABDOMEN: Soft, obese, nontender. Bowel sounds are heard. No organomegaly noted. Right radial site clean and dry, good distal pulse. EXTREMITIES: Right hyrzp-rrk-pouy amputation, left eiakx-hmb-upqr amputation NEUROLOGIC patient is awake, alert and oriented -3. - Labs CBC & Chem 7: 08/17/17 05:54 08/17/17 05:54 Labs: Abnormal Lab Results - Last 24 Hours (Table) 08/17/17 Range/Units 05:54 Plt Count 139 L (150-450) k/uL Assessment and Plan Plan: Assessment and plan #1 non-Q-wave myocardial infarction, status post angioplasty and stenting of the LAD #2 nicotine dependence, patient's smokes 2 packs of cigarettes per day #3 peripheral vascular disease with prior peripheral stenting, patient has a right below the knee amputation on the left above the knee amputation #4 hyperlipidemia, untreated Plan Echocardiogram with Doppler study was performed which revealed an ejection fraction of 30-35%. Patient will be discharged home today to follow-up with Dr. Carreon in the office in one week. Patient will be discharged home on aspirin 325 mg daily, Lipitor 80 mg daily, Plavix 75 mg daily, metoprolol 25 mg one tablet by mouth twice a day, nicotine patch, sublingual nitro as needed for chest pain. Patient is not currently on an RAJ inhibitor because of hypotension , this will be reevaluated in the office as an outpatient. DNP note has been reviewed, I agree with a documented findings and plan of care. Patient was seen and examined.
--- NOTE | 2017-08-17 11:48 | P.DS ---
Providers Date of admission: 08/15/17 15:05 Attending physician: Grover Mora Consults: 08/15/17 15:05 Consult Physician Urgent Consulting Provider: Ana Romo Consult Reason/Comments: nstemi Do you want consulting provider notified?: Yes 08/16/17 11:16 Consult Physician Routine Consulting Provider: [facility] Consult Reason/Comments: Post Interventional patient Do you want consulting provider notified?: Already Contacted Primary care physician: Salome Reynoso Hospital Course: 62-year-old and was admitted for chest pain found to have non-ST elevation microinfarction underwent cardiac catheterization and stenting of left anterior descending. Patient denied any chest pain at this point of time extensive recording cessation counseling was provided. PHYSICAL EXAMINATION: GENERAL: The patient is alert and oriented x3, not in any acute distress. Well developed, well nourished. HEENT: Pupils are round and equally reacting to light. EOMI. No scleral icterus. No conjunctival pallor. Normocephalic, atraumatic. No pharyngeal erythema. No thyromegaly. CARDIOVASCULAR: S1 and S2 present. No murmurs, rubs, or gallops. PULMONARY: Chest is clear to auscultation, no wheezing or crackles. ABDOMEN: Soft, nontender, nondistended, normoactive bowel sounds. No palpable organomegaly. MUSCULOSKELETAL: No joint swelling or deformity. EXTREMITIES: Patient is wheelchair dependent NEUROLOGICAL: Gross neurological examination did not reveal any focal deficits. SKIN: No rashes. Please refer to Dr. jeffery dictation for other chronic medical problems. Patient Condition at Discharge: Serious Plan - Discharge Summary Discharge Rx Participant: No New Discharge Prescriptions: New Aspirin 325 mg PO DAILY #30 tab Atorvastatin [Lipitor] 80 mg PO DAILY #30 tab Clopidogrel [Plavix] 75 mg PO DAILY #30 tab Metoprolol Tartrate [Lopressor] 25 mg PO BID #60 tab Nicotine 21Mg/24Hr Patch [Habitrol] 1 patch TRANSDERM DAILY #30 patch Nitroglycerin Sl Tabs [Nitrostat] 0.4 mg SUBLINGUAL Q5M PRN #25 tab PRN Reason: Chest Pain No Action Pregabalin [Lyrica] 200 mg PO TID Omeprazole [PriLOSEC] 20 mg PO AC-BRKFST Fluticasone Nasal Benedict [Flonase Nasal Benedict] 1 spr EA NOSTRIL DAILY Amitriptyline HCl [Elavil] 25 mg PO BID Discharge Medication List Amitriptyline HCl [Elavil] 25 mg PO BID 08/15/17 [History] Fluticasone Nasal Benedict [Flonase Nasal Benedict] 1 spr EA NOSTRIL DAILY 08/15/17 [ History] Omeprazole [PriLOSEC] 20 mg PO AC-BRKFST 08/15/17 [History] Pregabalin [Lyrica] 200 mg PO TID 08/15/17 [History] Aspirin 325 mg PO DAILY #30 tab 08/17/17 [Rx] Atorvastatin [Lipitor] 80 mg PO DAILY #30 tab 08/17/17 [Rx] Clopidogrel [Plavix] 75 mg PO DAILY #30 tab 08/17/17 [Rx] Metoprolol Tartrate [Lopressor] 25 mg PO BID #60 tab 08/17/17 [Rx] Nicotine 21Mg/24Hr Patch [Habitrol] 1 patch TRANSDERM DAILY #30 patch 08/17/17 [ Rx] Nitroglycerin Sl Tabs [Nitrostat] 0.4 mg SUBLINGUAL Q5M PRN #25 tab 08/17/17 [Rx ] Follow up Appointment(s)/Referral(s): Joe Carreon MD [STAFF PHYSICIAN] - 1 Week Salome Reynoso MD [Primary Care Provider] - 1-2 days [facility] Visiting Nurse, [NON-STAFF] - Discharge Disposition: HOME WITH HOME HEALTH SERVICES
[2017-08-17 12:09] VITALS: BP 99/60; TEMP 97.8
[2017-08-17 12:32] VITALS: PULSE 91
--- NOTE | 2017-08-21 10:15 | CC ---
CARDIAC CATHETERIZATION REPORT DATE OF SERVICE: 08/16/2017 PERFORMING PHYSICIAN: Fabian Matthews MD, Court Crier. PROCEDURE PERFORMED: 1. Selective right and left coronary angiogram. 2. Left heart catheterization. 3. Successful stenting of the proximal LAD using 3.0 x 20 mm Promus Premier drug- eluting stent with good angiographic results. INDICATION: This is a pleasant 62-year-old gentleman with peripheral arterial disease and bilateral bzoiu-aww-sihu amputation as well as hypertension and dyslipidemia who presented to the hospital with chest discomfort and was ruled in for acute coronary syndrome. He was seen and evaluated by Dr. Carreon who recommended proceeding with a heart catheterization. APPROACH: Right radial artery. COMPLICATION: None. LEVEL OF SEDATION: Moderate with sedation length of 48 minutes. PROCEDURE DESCRIPTION: After obtaining an informed consent, the patient was brought to the Cardiac Acetylene Operator. The right radial artery was cannulated using micropuncture technique, the micropuncture wire passed easily, then I placed a 6-Armenian sheath 11 cm in the right radial artery. After that I gave the patient 2 mg of verapamil IA and 10,000 units of heparin IV. After that, I did selective right and left coronary angiogram using JR4 and JL3.5 catheters. Left heart catheterization was performed using the JR4, which flipped into the LV then I did pullback across the aortic valve. After reviewing the angiogram, we decided to intervene on the LAD. Please see a separate paragraph for that. SELECTIVE CORONARY ANGIOGRAM: 1. The right coronary artery is a large caliber vessel and it is dominant. RCA has mild disease in the midportion. Distally bifurcates into PDA and PLV branches, both are angiographically normal. 2. The left main is a large caliber vessel. It is angiographically normal. It bifurcates into left circumflex, ramus intermedius, and left anterior descending artery. 3. The left circumflex is a large caliber vessel and it is a nondominant vessel. The left circumflex has 2 lesions in the midportion about 60%. 4. The ramus intermedius is a moderate caliber vessel and seems to be angiographically normal. 5. The LAD, the proximal LAD has a lesion, appeared to be in the range of 95% to 99% with a thrombus. This mid LAD by the bifurcation of a large diagonal is angiographically normal and the LAD distally is angiographically normal. HEMODYNAMICS: The left ventricular end-diastolic pressure was 12 mmHg and no gradient was identified across the aortic valve. PCI of the LAD anticoagulation was initiated using heparin with continuous ACT monitoring throughout the procedure. After that, I did engage the left main using JL3.5 guide. A whisper wire was used to wire the LAD. Subsequently, I did aspiration thrombectomy from the LAD and I was able to extract multiple pieces of white clot. Then I did balloon angioplasty using 2.5 mm balloon before I deployed 3.0 x 20 mm Promus Premier drug-eluting stent where the stent was positioned under fluoroscopy guidance and deployed under 16 atmospheres for 20 seconds with the following angiogram showing good angiographic results in each dissection. The procedure was completed without any complication with a NISHI-3 flow. CONCLUSION: 1. Acute coronary artery syndrome. 2. Plaque rupture and thrombus formation in the proximal left anterior descending artery with a lesion appears to be in the range of 95% to 99%. .. 3. Intermediate to severe disease involving the left circumflex. 4. Mild nonobstructive disease involving the right coronary artery. 5. Successful stenting of the left anterior descending artery as described above. POSTPROCEDURE MANAGEMENT: 1. Dual anti-platelet therapy. 2. Risk factors modifications. 3. Follow up with the patient. MMODL / IJN: [id number] /
== END 2017-08-17 14:06 | disposition home health service (06) | DRG 247 ==
LOC: EC 14:31 → 6SEL 15:05
PROVIDERS: ADMIT Hospitalist; ATTEND Hospitalist
PROC: B2111ZZ Fluoroscopy of Multiple Coronary Arteries using Low Osmolar Contrast (ICD-10-PCS; principal; 2017-08-16 09:38)
PROC: 4A023N7 Measurement of Cardiac Sampling and Pressure, Left Heart, Percutaneous Approach (ICD-10-PCS; principal; 2017-08-16 09:38)
PROC: 027034Z Dilation of Coronary Artery, One Artery with Drug-eluting Intraluminal Device, Percutaneous Approach (ICD-10-PCS; principal; 2017-08-16 09:38)
PROC: 02C03ZZ Extirpation of Matter from Coronary Artery, One Artery, Percutaneous Approach (ICD-10-PCS; principal; 2017-08-16 09:38)
DX: I21.4 Non-ST elevation (NSTEMI) myocardial infarction (principal); E66.01 Morbid (severe) obesity due to excess calories; Z89.612 Acquired absence of left leg above knee; I73.9 Peripheral vascular disease, unspecified; E78.5 Hyperlipidemia, unspecified; F17.210 Nicotine dependence, cigarettes, uncomplicated; Z89.511 Acquired absence of right leg below knee; Z91.14 Patient's other noncompliance with medication regimen; J44.9 Chronic obstructive pulmonary disease, unspecified; Z79.82 Long term (current) use of aspirin; Z79.899 Other long term (current) drug therapy; Z79.51 Long term (current) use of inhaled steroids; I25.110 Atherosclerotic heart disease of native coronary artery with unstable angina pectoris; I10 Essential (primary) hypertension
CPT/HCPCS: 71046; 80053; 80061; 82550; 82553; 82565; 83735; 84484; 85025; 85049; 85379; 85610; 85730; 93005; 93306; 93458; 94640; 94760; 96365; 96366; 96375; 99291

== ENCOUNTER → 2022-12-12 | Outpatient (CLI) | payer MEDICARE ==
[2022-12-12 13:10] LABS: African American GFR (CKD) >90 (>60 ml/min/1.73 sqM); Blood Urea Nitrogen 13 mg/dL (9-20); Non-African American GFR(CKD) 89 (>60 ml/min/1.73 sqM)
--- NOTE | 2022-12-13 07:47 | CT ---
EXAMINATION TYPE: CT angio abd aorta w/Runoff DATE OF EXAM: 12/12/2022 COMPARISON: None HISTORY: B/L AMPUTEE. RT LEG PAIN. CT DLP: 1289.40 mGycm Automated exposure control for dose reduction was used. Contrast: None Technique: CT of the abdomen pelvis and lower extremities is performed at 5 mm thick sections. 3-D re constructed images performed on a separate computer repair engineer are presented. FINDINGS: CT abdomen: Liver appear unremarkable. Adrenal glands are normal. Gallbladder is normal. Pancreas is unremarkable. Vascular calcifications within the aorta. Inferior vena cava is normal. Loops of bowel without oral contrast. Urinary bladder is normal. There is a 0.8 cm solid density at the superior grace e left kidney. A 1.8 cm cystic lesion may be on the lateral right kidney. Nonobstructing 1.3 cm calc ification within the posterior mid left kidney. Aorta and runoff: Celiac axis and superior mesenteric artery origins appear normal. Bilateral renal a rtery origins appear normal. Just below the renal arteries there is complete obstruction of the abdom inal aorta. Dense calcifications within the iliac vessels. No contrast is evident. Small vessels within the abdomen appear patent. There appears to be some collateral flow present with in the vessels. The major iliac and femoral arteries however appear unopacified. Some calcification i s evident within the femoral vessels. IMPRESSION: 1. OBSTRUCTION OF THE AORTA BELOW THE RENAL ARTERIES. 2. SCATTERED SMALL COLLATERAL VESSELS ARE IDENTIFIED. NO RECONSTITUTION OF THE MAJOR ARTERIAL SYSTEM BELOW THE AORTIC OBSTRUCTION
== END | disposition home or self-care (01) ==
LOC: RADCTMAIN 11:58
PROVIDERS: ATTEND Surgery
DX: I70.213 Atherosclerosis of native arteries of extremities with intermittent claudication, bilateral legs (principal)
CPT/HCPCS: 82565; 84520; 75635; 36415; Q9967

== ENCOUNTER 2023-01-02 10:10 | Inpatient (IN) | payer MEDICARE ==
[2023-01-02] MEDS ORDERED: LACTATED RINGERS 1,000 ML IV ONE ×2 (12:29→14:17)
[2023-01-02] MEDS ORDERED: ONDANSETRON 4 MG/2 ML VIAL ONE (12:35)
[2023-01-02] MEDS ORDERED: fentaNYL (PF) 50 MCG/ML 2 ML AMP IVP ONE ×2 (12:39→12:49)
[2023-01-02] MEDS ORDERED: DEXAMETHASONE SOD PHOSPHATE 4 MG/ML 1 ML VIAL IV ONE (12:41)
[2023-01-02] MEDS ORDERED: ONDANSETRON 4 MG/2 ML VIAL IVP ONE (12:42)
[2023-01-02] MEDS ORDERED: PHENYLEPHRINE-0.9% NACL SYG 1,000 MCG/10 ML SYRINGE ONE (13:04)
[2023-01-02] MEDS ORDERED: LIDOCAINE 2% INJ 20 MG/ML (2 ML VIAL) ONE (13:04)
[2023-01-02] MEDS ORDERED: fentaNYL (PF) 50 MCG/ML 2 ML AMP ONE (13:04)
[2023-01-02] MEDS ORDERED: PROPOFOL 10 MG/ML 20 ML VIAL IV ONE (13:04)
[2023-01-02] MEDS ORDERED: SUCCINYLCHOLINE CHLORIDE 200 MG/10 ML VIAL IV ONE (13:04)
[2023-01-02] MEDS ORDERED: HYDROmorphone (PF) 1 MG/ML ONE (13:04)
[2023-01-02] MEDS ORDERED: MIDAZOLAM 2 MG/2 ML VIAL ONE (13:04)
[2023-01-02 13:13] LABS: African American GFR (CKD) >90 (>60 ml/min/1.73 sqM); Anion Gap 6 mmol/L; Blood Urea Nitrogen 14 mg/dL (9-20); Calcium 8.9 mg/dL (8.4-10.2); Carbon Dioxide 31 mmol/L (22-30); Chloride 102 mmol/L (98-107); Glucose 106 mg/dL (74-99); Non-African American GFR(CKD) 89 (>60 ml/min/1.73 sqM); Potassium 4.4 mmol/L (3.5-5.1); Sodium 139 mmol/L (137-145)
[2023-01-02] MEDS ORDERED: ceFAZolin 2 GM in SODIUM CHLORIDE 0.9% 500 ML 500 ML IRRIGATION ONE (13:42)
--- NOTE | 2023-01-02 14:43 | P.OP ---
Date of Procedure: 01/02/23 Description of Procedure: Preoperative diagnosis: Right lower extremity ischemia, previous below-knee amputation Postoperative diagnosis: Same Procedure: Right Above-knee amputation Surgeon: Karen Hare D.O. Anesthesia: Gen. endotracheal EBL: 75 IV fluids: See records Urine output: Not measured Drains: None Complications: None immediately apparent Condition: Stable to recovery Operative indication and findings: Patient is a 67-year-old male who previously underwent a right below-knee amputation for peripheral vascular disease and nonhealing wounds. He has been doing relatively well but in the past few months had bumped the edge of the amputation site and has had a nonhealing wound with significant pain. He continues to have severe aortoiliac disease with occlusions. This time the thought was to go forward with an above-knee amputation in hopes of healing given he does have collateralized flow. We discussed that he may need intervention in the form of the axillary femoral bypass in order to fully heal the wound. He seemingly understands and is willing to proceed. Procedure in detail: The patient was taken to the operative suite and placed in supine position. After adequate anesthesia, the right lower extremity was prepped and draped in usual sterile fashion. A preprocedure timeout was performed, all parties were in agreement. Skin marker was utilized and the incision was marked approximately 5 cm proximal to the knee joint. Skin incision was performed and deepened through the subcutaneous tissues to the muscular fascia. The muscle groups of the anterior and medial thigh were divided with electrocautery at the same level of the skin incision. The neurovascular bundle was identified on the medial aspect of the thigh. The artery and veins were isolated and suture ligated using 2-0 silk ligature. The sciatic nerve was pulled on stretch and ligated with 2-0 silk tie and divided. The femur was then cleared of its periosteal tissue is elevated roughly 5 cm proximally and was divided with the oscillating saw. The posterior thigh muscles were then divided with electrocautery. The proximal end of the transected femur was smoothed with a rasp. The amputation site was then copiously irrigated. Hemostasis was controlled with electrocautery. The perio steum was reapproximated using interrupted sutures of 2-0 Vicryl. The fascia was reapproximated with interrupted [id number]-ad-[id number] sutures of 2-0 Vicryl. The skin was reapproximated with shelby. A dressing with gauze, Kerlix and a bandage were placed. The patient tolerated the procedure well and was transported to PACU in stable condition
[2023-01-02] MEDS ORDERED: HYDROmorphone 0.5 MG/0.5 ML SYRINGE IVP ONE (16:12)
[2023-01-02] MEDS ORDERED: hydrALAZINE HCL 20 MG/ML 1 ML VIAL IVP ONE (16:13)
[2023-01-02] MEDS ORDERED: NITROGLYCERIN SL TABS 0.4 MG TAB SUBLINGUAL PRN (17:43)
[2023-01-02] MEDS ORDERED: diphenhydrAMINE 25 MG CAP PO PRN (17:43)
[2023-01-02] MEDS: PREGABALIN 100 MG CAP PO SCH (20:17)
[2023-01-03 08:09] VITALS: TEMP 98.3
[2023-01-03] MEDS: PREGABALIN 100 MG CAP PO SCH ×2 (08:10→15:47)
[2023-01-03] MEDS: AMITRIPTYLINE HCL 25 MG TAB PO SCH (08:10)
[2023-01-03] MEDS ORDERED: ASPIRIN 81 MG PO SCH (09:00)
[2023-01-03] MEDS: HYDROcodone/APAP 5-325MG 1 EACH TAB PO PRN ×2 (10:09→15:48)
--- NOTE | 2023-01-03 12:10 | P.PN ---
Subjective Progress Note Date: 01/03/23 Principal diagnosis: Peripheral arterial disease, status post AKA Patient seen and examined today for follow-up. Yesterday he presented for right ibqbo-hwj-ofdo amputation. He is postop day #1. He states he's having quite a bit of pain. He denies any fevers or chills. No shortness of breath or chest pain. He is afebrile. Objective - Vital Signs Vital signs: Vital Signs Temp 98.3 F 01/03/23 08:08 Pulse 97 01/03/23 11:20 Resp 16 01/03/23 11:20 BP 116/55 01/03/23 11:20 Pulse Ox 91 L 01/03/23 11:20 FiO2 Intake & Output 01/02/23 01/03/23 01/03/23 18:59 06:59 18:59 Intake Total 1351 120 Output Total 75 1000 Balance 1276 -1000 120 Weight 65 kg Intake: IV 1351 Oral 120 Output: Urine 1000 Estimated Blood Loss 75 Other: Voiding Method Urinal # Voids 0 # Bowel Movements 0 - Exam General appearance: The patient is alert, oriented, appears in no acute distress. HET: Head is normocephalic and atraumatic. Pupils are equal and reactive. Neck: Supple. Heart: Regular. Lungs: Equal expansion, normal respiratory effort. Abdomen: Soft, nontender, nondistended. Extremities: Right nsskm-sej-nogc amputation stump with dressing clean dry and intact. Left lower extremity with ahlus-qom-mgjx amputation well healed. Neurological: No focal deficits. Strength and sensation are grossly intact. - Labs CBC & Chem 7: 01/02/23 12:30 Labs: Abnormal Lab Results - Last 24 Hours (Table) 01/02/23 Range/Units 12:30 Carbon Dioxide 31 H (22-30) mmol/L Glucose 106 H (74-99) mg/dL Assessment and Plan Assessment: 1. Aortoiliac occlusive disease status post right kxnhz-dao-ahcv amputation 2. Nonhealing wound to right BKA 3. Coronary artery disease 4. COPD 5. GERD 6. Tobacco abuse Plan: 1. Consult PT/OT evaluate for home care versus subacute rehab 2. Consult to case management 3. Hold off dressing changed today, will change tomorrow 4. Stump stencil inspector and rigid dressing ordered, comfort prosthetics 5. Consult to medicine for medical management Anticipate discharge in the next 24 hours The impression and plan of care has been dictated as directed. Dr. Hare I performed a history and examination of this patient, discussed the same with the dictator. I agree with the dictator's note ,documented as a scribe. Any additional findings or plans will be noted.
[2023-01-03] MEDS ORDERED: NICOTINE 21MG/24HR PATCH TRANSDERM SCH (15:00)
--- NOTE | 2023-01-03 15:33 | P.CONS ---
History of Present Illness - Reason for Consult Consult date: 01/03/23 Medical management Requesting physician: Karen Hare - Chief Complaint Right above-knee amputation - History of Present Illness This is a 67-year-old patient who follows with Dr. Morena Reynoso. Patient is currently: Right above-knee amputation. Postprocedure some pain is present. No nausea vomiting. Decreased appetite. Not wanting to eat. This rather tired. Reluctant to give much of a history. Some shortness of breath. No chest pain. No fever no chills. Review of systems: GEN.: Tired EYES: None HEENT: None NECK: None RESPIRATORY: [Of shortness of breath and cough CARDIOVASCULAR: None GASTROINTESTINAL: None GENITOURINARY: None MUSCULOSKELETAL: None LYMPHATICS: None HEMATOLOGICAL: None PSYCHIATRY: None NEUROLOGICAL: None Past medical history to include: CAD with stent, COPD, DVT, GERD, decreased eating, obstructive sleep apnea, peripheral neuropathy, DVT the leg, obstructive sleep apnea does not use a device, bilateral tinnitus Social history: Lives alone. Has a wheelchair. Smoking 2 packs a day. For 48 years. Does marijuana. No alcohol. Physical examination: VITAL SIGNS: 98.3, 75, 16, 11 6 x 55, 91% room air GENERAL: BMI 40.3, reclining, tired EYES: Pupils equal. Conjunctiva normal. HEENT: External appearance of nose and ears normal, oral cavity grossly normal. NECK: JVD not raised; masses not palpable. HEART: First and second heart sounds are normal; no edema. LUNGS: Respiratory rate increased; decreased breath sounds, prolonged expiration. ABDOMEN: Soft, nontender, liver spleen not palpable, no masses palpable. PSYCH: Sleepy, answering questions reluctantlyl. MUSCULOSKELETAL:No Clubbing/cyanosis;muscles-grossly intact. Dressing over the right above-knee amputation stump. Left above knee amputation NEUROLOGICAL: Cranial nerves grossly intact; no facial asymmetry, power and sensation grossly intact. LYMPHATICS: No lymph nodes palpable in the axilla and neck INVESTIGATIONS, reviewed in the clinical context: Sodium 139 potassium 4.4 BUN 14 creatinine 0.85 Assessment and plan: -Right above-knee amputation, with Dr. Hare. Stump care and pain control per Dr. Hare. -CAD with prior history of stent aspirin 81 mg daily. Lipitor 40 mg daily at bedtime -COPD in a current smoker DuoNeb -Chronic nicotine dependence, cigarette smoker Nicotine 21 mg patch -Obstructive sleep apnea, patient does not use a device -Chronic bilateral tinnitus -GERD Pepcid -Full code Patient rather sleepy and somewhat reluctant to talk. It was somewhat difficult up in the history. We will reevaluate again. Thank you Dr. Hare Past Medical History Past Medical History: Coronary Artery Disease (CAD), Chest Pain / Angina, COPD, Deep Vein Thrombosis (DVT), GERD/Reflux, Hearing Disorder / Deafness, Myocardial Infarction (CA), Pneumonia, Sleep Apnea/CPAP/BIPAP, Vascular Disorder Additional Past Medical History / Comment(s): Current right wound/gangrene, neuropathy in hands and legs, dvt in leg, ERVA without device, bilateral tinnitis, hypokalemia. Last Myocardial Infarction Date:: 2017 History of Any Multi-Drug Resistant Organisms: None Reported Past Surgical History: Heart Catheterization With Stent, Orthopedic Surgery Additional Past Surgical History / Comment(s): Right below the knee amputation, left below amputation then above the knee amputation Past Anesthesia/Blood Transfusion Reactions: No Reported Reaction Additional Past Anesthesia/Blood Transfusion Reaction / Comm: Pt has never received blood. Date of Last Stent Placement:: 2017 Smoking Status: Current every day smoker - Past Family History Father Family Medical History: Cancer, Diabetes Mellitus Mother Family Medical History: CVA/TIA, Diabetes Mellitus Sister(s) Family Medical History: Diabetes Mellitus Medications and Allergies Home Medications Medication Instructions Recorded Confirmed Type Amitriptyline HCl [Elavil] 25 mg PO QAM 08/15/17 01/02/23 History Pregabalin [Lyrica] 200 mg PO TID 08/15/17 01/02/23 History Nitroglycerin Sl Tabs [Nitrostat] 0.4 mg SUBLINGUAL Q5M PRN #25 tab 08/17/17 01/02/23 Rx Aspirin [Adult Low Dose Aspirin EC] 81 mg PO QAM 01/01/23 01/02/23 History diphenhydrAMINE HCL [Benadryl] 25 mg PO DIRECTED PRN 01/01/23 01/02/23 History HYDROcodone/APAP 5-325MG [[place] 1 each PO Q4HR PRN #12 tab 01/03/23 Rx 5-325] Allergies Allergy/AdvReac Type Severity Reaction Status Date / Time No Known Allergies Allergy Verified 01/02/23 12:31 Physical Exam Vitals: Vital Signs Temp Pulse Resp BP Pulse Ox 01/03/23 11:20 97 16 116/55 91 L 01/03/23 08:08 98.3 F 75 16 104/63 97 01/03/23 03:23 91 20 146/75 94 L 01/03/23 02:00 99 18 01/02/23 23:53 98.2 F 99 18 139/71 95 01/02/23 20:00 98.4 F 87 18 136/74 94 L 01/02/23 17:57 98.2 F 97 18 159/77 92 L 01/02/23 17:30 95 16 144/72 94 L 01/02/23 17:00 99 16 150/69 96 01/02/23 16:34 81 16 165/76 95 01/02/23 16:04 85 18 181/94 98 01/02/23 15:49 91 16 165/79 98 01/02/23 15:34 78 14 167/78 98 01/02/23 15:19 80 12 149/74 99 01/02/23 15:04 77 16 144/66 100 01/02/23 14:49 79 16 128/66 99 01/02/23 14:34 97.2 F L 78 16 125/60 99 Intake and Output 01/02/23 01/03/23 01/03/23 22:59 06:59 14:59 Intake Total 300 120 Output Total 1000 Balance 300 -1000 120 Intake: IV 300 Oral 120 Output: Urine 1000 Other: Voiding Method Urinal # Voids 0 # Bowel Movements 0 Results CBC & Chem 7: 01/02/23 12:30
--- NOTE | 2023-01-03 15:40 | P.DS ---
Providers Date of admission: 01/02/23 10:10 Expected date of discharge: 01/03/23 Attending physician: Karen Hare DO Primary care physician: Salome Reynoso [facility] Course: This is a 67-year-old male with past medical history including coronary artery disease, COPD, GERD, peripheral arterial disease with previous left nyuhk-hza-bbvq amputation and right below the knee amputation with arthrosclerosis of [place] arteries of right lower extremity with gangrene and continued pain. He continues to have severe aorto iliac disease with occlusions and opted to move forward with xxtho-ldo-ewjc amputation. Yesterday patient underwent right nvleu-rdi-ubwa amputation. He is postop day #1. Pain is well controlled. He is without any complaints of shortness of breath, chest pain, abdominal pain, nausea, vomiting, fevers or chills. He's been afebrile. Possible discharge for today once he is seen by case management, PT and OT further recommendations. Orders will be sent for stump tallow refiner with comfort prosthetics. Exam General appearance: The patient is alert, oriented, appears in no acute distress. HET: Head is normocephalic and atraumatic. Neck: Supple. Heart: Regular. Lungs: Equal expansion, normal respiratory effort. Abdomen: Soft, nontender, nondistended. Extremities: Previous left pgmzp-rzl-aauu amputation well-healed. Right bzgcw-cij-atuu amputation site with dressing clean dry and intact. Neurological: No focal deficits. Alert and oriented 3. Assessment 1. Right lower extremity tejrk-wbt-qhhu amputation 2. Right lower extremity ischemia, previous below-knee amputation Plan Discharge home. Surgical site care per discharge instructions. Comfort prosthetics to evaluate patient likely at home for stump tallow refiner. Case management consulted for transportation issues. Follow-up with Dr. Hare in 2 weeks. The impression and plan of care has been dictated as directed. Dr. Hare I performed a history and examination of this patient, discussed the same with the dictator. I agree with the dictator's note ,documented as a scribe. Any additional findings or plans will be noted. Procedures: Right xshzz-sgw-ewbd amputation Patient Condition at Discharge: Stable Plan - Discharge Summary Discharge Rx Participant: No New Discharge Prescriptions: New HYDROcodone/APAP 5-325MG [[place] 5-325] 1 each PO Q4HR PRN #12 tab PRN Reason: Pain Scale 6 To 7 Continue Pregabalin [Lyrica] 200 mg PO TID Amitriptyline HCl [Elavil] 25 mg PO QAM Nitroglycerin Sl Tabs [Nitrostat] 0.4 mg SUBLINGUAL Q5M PRN #25 tab PRN Reason: Chest Pain diphenhydrAMINE HCL [Benadryl] 25 mg PO DIRECTED PRN PRN Reason: Congestion Aspirin [Adult Low Dose Aspirin EC] 81 mg PO QAM Discharge Medication List Amitriptyline HCl [Elavil] 25 mg PO QAM 08/15/17 [History] Pregabalin [Lyrica] 200 mg PO TID 08/15/17 [History] Nitroglycerin Sl Tabs [Nitrostat] 0.4 mg SUBLINGUAL Q5M PRN #25 tab 08/17/17 [Rx] Aspirin [Adult Low Dose Aspirin EC] 81 mg PO QAM 01/01/23 [History] diphenhydrAMINE HCL [Benadryl] 25 mg PO DIRECTED PRN 01/01/23 [History] HYDROcodone/APAP 5-325MG [[place] 5-325] 1 each PO Q4HR PRN #12 tab 01/03/23 [Rx] Follow up Appointment(s)/Referral(s): Karen Hare DO [STAFF PHYSICIAN] - 2 Weeks [facility], [NON-STAFF] - Activity/Diet/Wound Care/Special Instructions: Begin showering tomorrow, no tub baths or soaking. Monitor surgical site for infection including redness, purulent drainage, fever greater than 100.4 Dressing change daily or as needed with 4 x 4, Kerlix. Discharge Disposition: HOME WITH HOME HEALTH SERVICES
[2023-01-03 15:47] VITALS: BP 102/51; PULSE 73; RESP 17
[2023-01-03] MEDS ORDERED: IPRATROPIUM-ALBUTEROL 3 ML NEB INHALATION SCH (16:00)
[2023-01-03] MEDS ORDERED: FAMOTIDINE 20 MG TAB PO SCH (21:00)
[2023-01-03] MEDS ORDERED: ATORVASTATIN 40 MG TAB PO SCH (21:00)
--- NOTE | 2023-01-04 07:31 | CDI ---
Documentation Clarification Form Date: 01/04/2023 07:20:11 AM From: Jazmine Vick Admit Date: 01/02/2023 10:10:00 AM Patient Name: Jamal Farfan Visit Number: [id number] Discharge Date: 01/03/2023 04:35:00 PM ATTENTION: The Clinical Documentation Specialists (CDI) and [facility] Coding Staff appreciate your assistance in clarifying documentation. Please respond to the clarification below the line at the bottom and electronically sign. The CDI & [facility] Coding staff will review the response and follow-up if needed. Please note: Queries are made part of the Legal Health Record. If you have any questions, please contact the author of this message via ITS. Dr. Karen Hare Patient with previous right BKA with non healing wound documented in Procedure Report pm 01/02/2023. AKA was done. Please clarify if the AKA was low, middle or high amputation. Additional clarification regarding the procedure is requested. History/Risk factors: Personal history of Left AKA and Right BKA Pre-Operative Diagnosis: Right lower extremity ischemia, previous BKA Postoperative Diagnosis: Right lower extremity ischemia, previous BKA Clinical Indicators: non healing amputation wound with significant pain Treatment: Right AKA Please clarify the following: [ ] Low Right AKA [ xx] MID Right AKA [ ] HIgh Right AKA MTDD
== END 2023-01-03 16:35 | disposition home health service (06) | DRG 475 ==
LOC: 2ORMAIN 10:10 → 3SCARD 17:14
PROVIDERS: ADMIT Surgery; ATTEND Surgery
PROC: 0Y6C0Z2 Detachment at Right Upper Leg, Mid, Open Approach (ICD-10-PCS; principal; 2023-01-02 13:00)
DX: T87.43 Infection of amputation stump, right lower extremity (principal); I70.261 Atherosclerosis of native arteries of extremities with gangrene, right leg; G47.33 Obstructive sleep apnea (adult) (pediatric); K21.9 Gastro-esophageal reflux disease without esophagitis; I25.10 Atherosclerotic heart disease of native coronary artery without angina pectoris; F17.210 Nicotine dependence, cigarettes, uncomplicated; Z95.5 Presence of coronary angioplasty implant and graft; J44.9 Chronic obstructive pulmonary disease, unspecified; H91.90 Unspecified hearing loss, unspecified ear; I25.2 Old myocardial infarction; Z87.01 Personal history of pneumonia (recurrent); G62.9 Polyneuropathy, unspecified; Z86.718 Personal history of other venous thrombosis and embolism; Z60.2 Problems related to living alone; Z79.82 Long term (current) use of aspirin; Z79.899 Other long term (current) drug therapy; Z89.511 Acquired absence of right leg below knee; Z89.612 Acquired absence of left leg above knee
CPT/HCPCS: 80048